=== PATIENT | female | born 1970 | race African-American/Black ===

== ENCOUNTER 2016-05-24 22:32 | Emergency (ER) ==
--- NOTE | 2016-05-25 01:10 | PROVIDER DOCUMENTATION ---
HPI-Musculoskeletal Pain/Inj - GENERAL Chief Complaint: Hip Pain Stated Complaint: HIP PAIN Time Seen by Provider: 05/25/16 00:39 Source: patient - HX OF PRESENT ILLNESS-MUSKULOSKELTAL Nature of Presenting Problem: 45 y/o BF c/o L hip pain x 5 days. Pt states long hx of arthritis in hips and has been told by her orthopedist that she needs a hip replacement. States that L hip has been hurting since weather got colder. States takes tylenol for pain since she can't take NSAIDS. Denies any other sxs. States can ambulate, but with pain. Review of Systems - Adult - REVIEW OF SYSTEMS - ADULT Constitutional: reports: no symptoms reported. denies: chills, fever Eyes: reports: no symptoms reported. denies: blurred vision, double vision Ears, Nose, Mouth & Throat: reports: no symptoms reported. denies: ear pain, nose pain Cardiovascular: reports: no symptoms reported. denies: chest pain, palpitations Respiratory: reports: no symptoms reported. denies: dyspnea on exertion, shortness of breath Gastrointestinal: reports: no symptoms reported. denies: nausea, vomiting Genitourinary: reports: no symptoms reported. denies: dysuria, frequency Musculoskeletal: reports: see HPI, joint pain. denies: back pain, neck pain Integumentary: reports: no symptoms reported. denies: nail changes, rash Neurological: reports: no symptoms reported. denies: numbness, paresthesia Psychiatric: reports: no symptoms reported Endocrine: reports: no symptoms reported. denies: cold intolerance, heat intolerance Hematologic/Lymphatic: reports: no symptoms reported. denies: easy bruising, prolonged bleeding Allergic/Immunologic: reports: no symptoms reported All Other Systems: Reviewed and Negative Past History - Adult - PAST MEDICAL HISTORY-ADULT Review of Records: reports: Nursing Assessment Review, Medications Reviewed Major Childhood Illnesses: reports: denies history Cardiovascular: reports: HTN Respiratory: reports: other (nodule in lung) Gastrointestinal: reports: cholelithiasis, GERD, inflammatory bowel disease. denies: Crohn's, colitis, diverticulosis, hepatitis, liver disease, pancreatitis Obstetrical/Gynecological: reports: denies history Genitourinary: reports: denies history, chronic UTI's. denies: kidney stones Musculoskeletal: reports: neck/back injury Neurological: denies: CVA, degenerative disease, Seizures/Epilepsy Psychiatric: reports: denies history Endocrine/Immune: reports: denies history Other Conditions: reports: denies history - PRIOR SURGERIES/PROCEDURES Surgical/Procedure History: reports: hysterectomy, BTL, back/neck (cervical fusion x2) - IMMUNIZATION STATUS Childhood Immunizations: See Nurse Assessment Flu Vaccine: See Nurse Assessment - FAMILY HISTORY Family History: diabetes, HTN Physical Exam-Injury Related - Physical Exam-Injury Related Initial Vital Signs Reviewed: Yes General Appearance: alert, mild distress Eyes: pink conjunctivae Head, Ears, Nose, Mouth & Throat: normocephalic/atraumatic Neck: normal inspection Respiratory: no respiratory distress Cardiovascular: normal peripheral pulses, regular rate, rhythm. negative: bradycardia, tachycardia Peripheral Pulses: dorsalis-pedis (R): 2+, dorsalis-pedis (L): 2+ Back Exam: normal inspection Extremity: normal gait, normal inspection, normal capillary refill, tenderness ( L hip). negative: abnormal NV exam, pulse deficit Integumentary: normal color, warm/dry Neurologic: negative: aphasia Psych/Mental Status: AL, normal mood/affect, normal thought content, normal thought process, oriented x 3 Progress - PLAN OF CARE/RESULTS Progress/Plan/Lab Results: Orders Category Date Time Status XRAY PELVIS W/HIP 2-3VW LT [RAD] Stat Exams 05/25/16 01:01 Completed Vital Signs Temp Pulse Resp BP Pulse Ox 05/25/16 02:20 97.2 F L 64 18 115/68 99 05/24/16 23:04 98.5 F 73 18 137/96 95 corn [[place]] Allergy (Severe, Verified 04/16/16 04:25) HIVES,rash yeast, dried Allergy (Severe, Verified 04/16/16 04:25) HIVES Carvedilol [Coreg] 2 tab PO BID 12/19/12 Omeprazole 40 mg PO BID 08/17/15 Losartan Potassium 25 mg PO DAILY 09/29/15 Discussed results and f/u with pt. Pt requests steroid injection; I explained that ortho can evaluate and give her a steroid shot in the office. - XRAY 1 XRAY: Left XRAY Study: Pelvis, Hip XRAY Interpretation: arthritic changes Departure - Departure Time of Disposition Order: 01:50 DIAGNOSIS: Hip arthritis Disposition: HOME 01 Certified Medical Emergency: Emergent Condition: Stable Additional Instructions: Ice or heat to area as needed. Continue taking tylenol for pain. Follow up with Dr. Billingsley for further management. ED Follow Up Instructions: You have been treated by a care provider in the Emergency Department. These instructions are being provided to you so you can have an understanding of how to care for yourself upon discharge. Upon discharge from the Emergency Department, you are responsible for making arrangements for follow-up care by a physician of your choice. Take all prescribed medications as directed. Return to the Emergency Department immediately for any new or worsening symptoms. You may call the Physician Referral phone number at [phone] to obtain a list of Physicians who are taking new patients. Referrals: Otis Wong [Primary Care Provider] - Isac Billingsley MD [STAFF PHYSICIAN] - Forms: Return to School/Parent Work Instructions: Arthritis, Nonspecific, [id number] Attestation - Physician/ Mid-level Attestation Patient care was provided by Mid-level provider (GINGER FARMER/PA):: Yes Mid-level provider:: Carmela Joya Mid-level documentation review:: The Mid-level provider documentation, treatment plan and medical decision making was reviewed by the physician who agrees with all treatment and medical decision making by the MLP.
[2016-05-25 02:21] VITALS: BP 115/68
--- NOTE | 2016-05-25 12:58 | Diag Imaging Result Document ---
PROCEDURE NAME: XRAY PELVIS W/HIP 2-3VW LT - 05/25/2016 AP PELVIS AND RIGHT HIP, 3 VIEWS: FINDINGS: There is degenerative change and flattening of both femoral heads, particularly the right, with osteophyte formation. The joint spaces are fairly well maintained. 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 No evidence of acute fracture or dislocation is present. IMPRESSION: Osteoarthritis. [facility]
== END 2016-05-25 02:22 | disposition home or self-care (01) ==
LOC: P.ED 22:32
DX: M13.852 Other specified arthritis, left hip (principal); M25.552 Pain in left hip; I10 Essential (primary) hypertension; K21.9 Gastro-esophageal reflux disease without esophagitis; Z87.440 Personal history of urinary (tract) infections; Z98.1 Arthrodesis status; Z87.19 Personal history of other diseases of the digestive system; Z79.899 Other long term (current) drug therapy; Z83.3 Family history of diabetes mellitus; Z82.49 Family history of ischemic heart disease and other diseases of the circulatory system
CPT/HCPCS: 99283

== ENCOUNTER 2019-03-23 01:02 | Inpatient (IN) ==
[2019-03-23] MEDS ORDERED: ASPIRIN PO ONE (01:14)
--- NOTE | 2019-03-23 01:20 | PROVIDER DOCUMENTATION ---
HPI-Chest Pain - General Stated Complaint: CHEST/BACK PAIN Time Seen by Provider: 03/23/19 01:10 Source: patient Allergies/Adverse Reactions: Patient Allergies Allergy/AdvReac Type Severity Reaction Status Date / Time corn [[place]] Allergy Severe HIVES,rash Verified 03/23/19 01:41 yeast, dried Allergy Severe HIVES Verified 03/23/19 01:41 Home Medications: Home Medication List Medication Instructions Recorded Confirmed Last Taken Type NK [No Home Medications] 03/23/19 03/23/19 Unknown History - History of Present Illness-CP Nature of Presenting Problem: 48 YOF WITH PMH OF HTN PRESENTS WITH C/O SHARP CHEST PAIN RADIATING TO L ARM THAT BEGAN "A FEW HOURS AOG", LOW BACK PAIN THAT HAS BEEN PRESENT X 1 WK WITH NO KNOWN INJURY. SHE DENIES ASSOCIATES SYMPTOMS WITH THE CHEST PAIN INCLUDING SOB, N/V/D, DIAPHORESIS. SHE DENIES LOSS OF B&B CONTROL, NUMBNESS TINGLING OR WEAKNESS OF THE LOWER EXTREMITIES. SHE DOES HAVE A FAMILY HX OF HEART DISEASE WITH A BROTHER DYING OF AN [place] AT AGE 49. Location: reports: substernal Chest Pain Radiation: reports: arms (L) Quality of Pain: reports: sharp Severity in ED: moderate Onset/Duration: 1-3 hours ago Timing: still present Context/Activities at Onset: reports: none Modifying Factors: improves with: nothing Associated Symptoms: reports: denies symptoms Nitro Today/Relief: no nitro taken today Aspirin Treatment Today: no aspirin today Prior Chest Pain/Cardiac Workup: reports: no prior cardiac workup. denies: cardiac cath Similar Symptoms Previously?: No Recently Seen Here or By Another Healthcare Provider: No Review of Systems - Adult - REVIEW OF SYSTEMS - ADULT Constitutional: reports: no symptoms reported. denies: see HPI, chills, fever, fatique, night sweats, weight gain, weight loss, other Eyes: reports: no symptoms reported. denies: see HPI, discharge, dry eyes, decreased vision, blurred vision, double vision, eye pain, redness, other Ears, Nose, Mouth & Throat: reports: no symptoms reported. denies: see HPI, ear discharge, ear pain, hearing loss, tinnitus, epistaxis, sinus problem, nose pain, loose teeth, mouth/dental pain, mouth swelling, hoarseness, throat pain, throat swelling, other Cardiovascular: reports: see HPI, chest pain. denies: no symptoms reported, edema, heart murmur, irregular heart rate, orthopnea, palpitations, poor circulation, PND, syncope, other Respiratory: reports: no symptoms reported. denies: see HPI, chronic cough, cough, dyspnea on exertion, excessive sputum production, hemoptysis, pleurisy, shortness of breath, wheezing, other Gastrointestinal: reports: no symptoms reported. denies: see HPI, abdominal pain, hematemesis, constipation, diarrhea, difficulty swallowing, frequent heartburn, nausea, poor appetite, rectal bleeding, vomiting, other Genitourinary: reports: no symptoms reported. denies: see HPI, dysuria, discharge, frequency, flank pain, frequent UTI's, hematuria, hesitency, incontinence, urinary retention, urgency, other Musculoskeletal: reports: see HPI, back pain. denies: no symptoms reported, bone pain, frequent leg cramps, joint pain, joint swelling, muscle aches, muscle weakness, neck pain, other Integumentary: reports: no symptoms reported. denies: see HPI, hives, hair loss, itching, mole changes, nail changes, rash, skin sores/ulcer, skin thickening, other Neurological: reports: no symptoms reported. denies: see HPI, ataxia, dizziness/vertigo, headache/migraines, loss of balance, numbness, paresthesia, seizure, slurred speech, syncope, tremors, other Psychiatric: reports: no symptoms reported. denies: see HPI, anxiety, anti- depressant use, alcohol/drug dependence, depression, emotional problems, insomnia, panic attacks, suicidal thoughts, other Endocrine: reports: no symptoms reported. denies: see HPI, change in skin pigment, excessive sweating, goiter, cold intolerance, heat intolerance, inc reased hunger, increased thirst, polyuria, other Hematologic/Lymphatic: reports: no symptoms reported. denies: see HPI, blood clots, easy bruising, low blood count, lymphedema, prolonged bleeding, swollen lymph nodes, transfusions, other Allergic/Immunologic: reports: no symptoms reported. denies: see HPI, allergic reactions, allergic rhinitis, asthma, eczema, food allergy, frequent infections, hay fever, hives, positive PPD, urticaria, other Past History - Adult - PAST MEDICAL HISTORY-ADULT Review of Records: reports: Nursing Assessment Review, Social history reviewed & non-contributory. Major Childhood Illnesses: reports: denies history Cardiovascular: reports: HTN Respiratory: reports: other (nodule in lung) Gastrointestinal: reports: cholelithiasis, GERD, inflammatory bowel disease. denies: Crohn's, colitis, diverticulosis, hepatitis, liver disease, pancreatitis Obstetrical/Gynecological: reports: denies history Genitourinary: reports: denies history, chronic UTI's. denies: kidney stones Musculoskeletal: reports: neck/back injury Neurological: denies: CVA, degenerative disease, Seizures/Epilepsy Psychiatric: reports: denies history Endocrine/Immune: reports: denies history Other Conditions: reports: denies history - PRIOR SURGERIES/PROCEDURES Surgical/Procedure History: reports: hysterectomy, BTL, back/neck - IMMUNIZATION STATUS Childhood Immunizations: See Nurse Assessment Flu Vaccine: See Nurse Assessment - FAMILY HISTORY Family History: diabetes, HTN - SOCIAL HISTORY Smoking: denies Substance Use: denies Alcohol Use Frequency: never Physical Exam-General - PHYSICAL EXAM-ADULT Initial Vital Signs Reviewed: Yes - CONSTITUTIONAL General Appearance: appears well, alert, no apparent distress - EYES Eyes: PERRL/EOMI, pink conjunctivae - HEAD, EARS, NOSE, MOUTH & THROAT HENMT: normocephalic/atraumatic, moist mucous membranes, normal ENT inspection - NECK Neck: non-tender, full range of motion, supple - RESPIRATORY Respiratory: chest non-tender, lungs clear, normal breath sounds, no pleuratic chest pain, no respiratory distress, no accessory muscle use - CARDIOVASCULAR Cardiovascular: normal peripheral pulses, regular rate, rhythm, no edema, no gallop, no JVD, no murmur - GASTROINTESTINAL (ABDOMEN) Abdominal Exam: normal bowel sounds, non tender, soft, no organomegaly, no pulsatile mass - LYMPHATIC Lymphatic: no adenopathy - MUSCULOSKELETAL Back Exam: normal inspection, no CVA tenderness, no vertebral tenderness Extremity: normal range of motion, non-tender, normal gait Peripheral Pulses: radial (R): 2+, radial (L): 2+ - SKIN Integumentary: normal color, normal turgor, warm/dry - NEUROLOGIC Neurologic: grossly normal - PSYCHIATRIC Psych/Mental Status: normal mood/affect, oriented x 3 - HEART Score HEART Score: History: Slightly Suspicious HEART Score: ECG: Non-Specific Repolarization Disturbance/LBBB/PM HEART Score: Age: 45-65 Years HEART Score: Risk Factors for Atherosclerotic Disease: 1 or 2 Risk Factors HEART Score: Troponin: < or = Normal Limit Total HEART Score:: 3 Progress - PLAN OF CARE/RESULTS Progress/Plan/Lab Results: Vital Signs - 8 hr 03/23/19 01:10 Temperature 98.4 F Pulse Rate 70 Respiratory Rate 13 Blood Pressure 158/98 O2 Sat by Pulse Oximetry 98 Orders Category Date Time Status Nursing- Obtain EKG ONCE Care 03/23/19 01:07 Active CHEST-2 VIEWS [RAD] Stat Exams 03/23/19 01:14 Taken CBC WITH ELECTRONIC DIFF [HEME] Stat Lab 03/23/19 01:54 Ordered CK PROFILE [SP CHEM] Stat Lab 03/23/19 01:54 Ordered COMPREHENSIVE METABOLIC PANEL [CHEM] Stat Lab 03/23/19 01:54 Ordered PROTIME WITH INR [COAG] Stat Lab 03/23/19 01:54 Ordered PTT [[place]AG] Stat Lab 03/23/19 01:54 Ordered TROPONIN T Stat Lab 03/23/19 01:54 Ordered Aspirin Med 03/23/19 01:14 Discontinued 325 mg PO NOW ONE EKG [EKG] Stat Ther 03/23/19 01:14 Ordered Result Diagrams: 03/23/19 01:53 03/23/19 01:53 - REASSESSMENT Reassessment #1 Status: improving (pt signed out to me by GENARO Williamson pending labs. Feeling well, chest pain resolved. ED work up unremarkable but presentation concerning for ACS. Will admit for further evalauation and treatment. Discussed case with Dr. Cárdenas hospitalist. who will see and admit pt.) - EKG 1 Time of EKG reading by physician:: 01:20 EKG Read and Signed by:: Petra Collazo EKG Interpretation (*Must complete 3 of following elements*): Abnormal Rate: 73 Rhythm: NSR [place]: normal QRS: normal [place] Interval: normal ST Wave: non-specific ST changes Prior EKG Comparison: changes noted - XRAY 1 XRAY Study: Chest Impression: Normal - CHANGE OF SHIFT REPORT (ED Provider) 1 Report Given and Care Transferred to:: DR. COLLAZO Time of Transfer: 02:00 Items Pending: Labs Departure - Departure Date of Disposition Decision: 03/23/19 Time of Disposition Decision: 03:10 DIAGNOSIS: Chest pain Qualifiers: Chest pain type: unspecified Qualified Code(s): R07.9 - Chest pain, unspecified Disposition: ADMITTED INPATIENT 09 Certified Medical Emergency: Emergent Condition: Fair - Critical Care Note This patient required my direct & personal management of CC.: No Attestation - Physician/ ALEX Attestation Patient care was provided by Advanced Practice Provider:: Yes Advanced Practice Provider documentation review:: The Mid-level provider documentation, treatment plan and medical decision making was reviewed by the physician who agrees with all treatment and medical decision making by the MLP. The physician spent face to face time with patient:: Yes Advanced Practice Provider documentation review:: Supervising physician onsite and consulted in the evaluation and care of this patient. The physician did have a face to face encounter with the patient.
[2019-03-23 02:04] LABS: BASO# 0.02 X1000 (0.0-0.2); BASO% 0.2 % (0.0-0.8); EOS# 0.09 X1000 (0.0-0.7); EOS% 1.1 % (0.0-10.0); HEMATOCRIT 39.1 % (37.0-47.0); HEMOGLOBIN 13.1 g/dL (12.0-16.0); IMM GRAN# 0.02 X1000 (0.0-0.04); IMM GRAN% 0.2 % (0.0-0.5); LYMPH# 2.68 X1000 (1.2-3.4); LYMPH% 32.7 % (20.5-51.1); MCH 26.4 PG (27-31); MCHC 33.5 g/dL (33-37); MCV 78.7 FL (81-99); MONO# 0.53 X1000 (0.11-0.59); MONO% 6.5 % (1.7-9.3); MPV 9.8 FL (7.4-10.4); NEUT# 4.85 X1000 (1.4-6.5); NEUT% 59.3 % (42.2-75.2); PLT 283 X1000 (130-400); RBC 4.97 XMIL (4.2-5.4); RDW 13.1 % (11.5-14.5); WBC 8.19 X1000 (4.8-10.8)
[2019-03-23 02:18] LABS: INR 1.01; PROTIME 13.4 Seconds (11.0-16.0)
[2019-03-23 02:19] LABS: PTT 41.1 Seconds (22.3-41.8)
[2019-03-23 02:24] LABS: AGAP 13; ALB/GLOB RATIO 1.8; ALBUMIN 4.7 g/dL (3.5-5.0); ALKALINE PHOSPHATASE 142 U/L (32-104); BUN 11 mg/dL (8-22); CALCIUM 10.2 mg/dL (8.8-10.2); CHLORIDE 102 mmol/L (98-107); CK PROFILE 165 U/L (24-173); COSMO 281; CREATININE 0.9 mg/dL (0.5-0.9); ESTIMATED GFR > 60; GLUCOSE 102 mg/dL (70-104); GOT 14 U/L (10-30); GPT 6 U/L (10-36); SODIUM 141 mmol/L (136-145); TCO2 26 mmol/L (25-35); TOTAL BILIRUBIN 0.34 mg/dL (0.20-1.00); TOTAL PROTEIN 7.3 g/dL (6.3-8.3)
[2019-03-23] MEDS ORDERED: ZOFRAN IV ONE (03:17)
--- NOTE | 2019-03-23 06:03 | HISTORY AND PHYSICAL ---
CHIEF COMPLAINT: Chest pain. HISTORY OF PRESENT ILLNESS: This is a 48-year-old female who has a history of hypertension. She does not take any home medications. Also has a history of having to have esophageal dilation. States that she also has chronic low back pain. She has been having this for greater than a week. States that her chest started hurting today, radiated into her left arm. She did not have any nausea, vomiting, shortness of breath or diaphoresis with this. EKG was normal. The patient does have a history of early from cardiac disease in her family. Her brother at age 49. Her HEART score is still relatively low. She will be observed and cardiac enzymes trended. PAST MEDICAL HISTORY: See HPI. PREVIOUS SURGICAL HISTORY: 1. Esophageal dilation multiple times. 2. Two cervical fusions. 3. Cholecystectomy. 4. Hysterectomy. SOCIAL HISTORY: She is disabled secondary to neck pain. No tobacco, alcohol or illicit drugs. FAMILY HISTORY: Father and mother have coronary artery disease. They are still living in their 70s. Brother from NH at age 49. ALLERGIES: [place] and yeast. HOME MEDICATIONS: None. REVIEW OF SYSTEMS: Fourteen-point review of systems conducted with the patient. Pertinent positives listed above in the HPI. All other systems reviewed and found to be negative. PHYSICAL EXAMINATION: VITAL SIGNS: Temperature 98.4, pulse 61, respirations 16, blood pressure 156/97, oxygen saturation 96% on room air. GENERAL: A 48-year-old female lying in the ER stretcher. She is in no acute distress. Alert and oriented times 3. Answers all questions appropriately. HEENT: Head is atraumatic, normocephalic. Pupils equal, round, reactive to light. Extraocular eye movement is intact. Sclerae are anicteric. Conjunctiva is pink. Oral mucosa is moist. NECK: Supple. No JVD. No thyromegaly. Trachea is midline. No cervical lymphadenopathy. CARDIAC: S1, S2 appreciated. No murmurs, gallops, rubs. LUNGS: Clear to auscultation bilaterally. No rhonchi, wheezes, rales. Symmetric rise and fall with respirations. ABDOMEN: Soft, nondistended, nontender. Bowel sounds present all 4 quadrants, normoactive. No pulsatile mass. No organomegaly. EXTREMITIES: No clubbing, cyanosis or edema. Two-plus pedal pulses bilaterally. GENITOURINARY: No bladder distention. Patient voids. Otherwise deferred. NEUROLOGICAL: Alert and oriented times 3. Cranial nerves 2 through 12 grossly intact. LABORATORY DATA: CBC and CMP within normal limits. CK and troponin within normal limits. Chest x-ray: No acute disease. UA is pending. EKG: Normal sinus rhythm, rate of 73, nonspecific ST changes. ASSESSMENT AND PLAN: 1. Chest pain, rule out acute myocardial infarction. Patient will be placed in observation status. Her HEART score is roughly 3. She does have early family . Really no other risk factors other than hypertension which as far as I can tell is untreated. We will trend cardiac enzymes. Echocardiogram tomorrow morning. 2. Hypertension. We will place on hydralazine IV p.r.n. now. Her chest pain has resolved. We will just give sublingual nitroglycerin. We will not put transdermal as the patient was also complaining of a headache. 3. Frequent esophageal dilation. If the patient continues to have problems and it is not thought to be cardiac, she may need to follow up with Dr. Cartagena. The patient was a Dr. Shah patient who is no longer here. At any rate, she may need esophageal dilation. Further recommendations per patient clinical course. Dictated by JAMEE Diaz for Tutu Cárdenas MD I have performed a face to face diagnostic evaluation. Labs/Xrays- reviewed. Exam- Chest- clear CV- regular. A/P- Chest pain- admit, cardiac work up, ASA, Echo. Dr. Cárdensa cc: JAMEE Diaz MD [facility]
--- NOTE | 2019-03-23 06:29 | Diag Imaging Result Doc PS360 ---
EXAM: CHEST-2 VIEWS HISTORY: CP TECHNIQUE: Two views COMPARISON: 11/18/2017 FINDINGS: The lungs are well expanded. The heart is not enlarged. The vessels are not distended. There are no infiltrates. No pleural effusions. There has been surgery to the lower neck. IMPRESSION: No acute abnormality. Electronically signed by Jacques White 03/23/2019 6:27 AM
[2019-03-23] MEDS ORDERED: ZOFRAN IV PRN (06:47)
[2019-03-23] MEDS ORDERED: TYLENOL PO PRN (06:47)
[2019-03-23] MEDS ORDERED: NITROGLYCERIN SL PRN (06:47)
[2019-03-23] MEDS ORDERED: APRESOLINE IV PRN (06:47)
[2019-03-23] MEDS ORDERED: PRILOSEC PO SCH (07:00)
--- NOTE | 2019-03-23 07:08 | EKG Report ---
Test Performed on : 03/23/2019 01:15:55 AM Test Reason : CP Blood Pressure : / mmHG Vent. Rate : 073 BPM Atrial Rate : 073 BPM P-R Int : 160 ms QRS Dur : 068 ms QT Int : 358 ms P-R-T Axes : 000 -24 -35 degrees QTc Int : 394 ms Normal sinus rhythm. Septal infarct , age undetermined Abnormal ECG When compared with ECG of 18-NOV-2017 17:04, Septal infarct is now present Unconfirmed Result
[2019-03-23 07:52] LABS: URINE SOURCE CLEAN CATCH
[2019-03-23 07:56] LABS: BILIRUBIN URINE NEGATIVE (NEGATIVE); BLOOD URINE NEGATIVE (NEGATIVE); COLOR STRAW; GLUCOSE URINE NEGATIVE (NEGATIVE); KETONE URINE NEGATIVE (NEGATIVE); LEUKOCYTES URINE NEGATIVE (NEGATIVE); NITRITE URINE NEGATIVE (NEGATIVE); PROTEIN URINE NEGATIVE (NEGATIVE); SP GRAVITY URINE 1.008; TURBIDITY URINE CLEAR (CLEAR); UROBILINOGEN URINE NORMAL (NORMAL)
[2019-03-23 07:57] LABS: UR EPITHELIAL CELLS <10 /HPF (<10); URINE BACTERIA NEGATIVE /HPF; URINE RBC <10 /HPF (<10); URINE WBC <10 /HPF (<10)
[2019-03-23] MEDS ORDERED: G.I. COCKTAIL PO ONE (09:56)
[2019-03-23] MEDS: ASPIRIN PO SCH (11:19)
[2019-03-23] MEDS: LOVENOX SUBQ SCH (11:19)
--- NOTE | 2019-03-23 17:19 | CONSULTATION ---
DATE OF CONSULTATION: 03/23/2019 IMPRESSION: 1. Episodic chest discomfort, atypical for myocardial ischemia. 2. Gastroesophageal reflux with history of esophageal stricture and previous esophageal dilatations on several occasions. 3. Chronic pain disorder following 2 previous neck procedures. RECOMMENDATIONS: 1. Serial cardiac enzymes. 2. Followup echocardiography. 3. Ultimately patient would benefit from screening stress test. She does not sound like she would be able to perform on a treadmill and thus Lexiscan sestamibi study may be most appropriate. HISTORY: This 48-year-old -Irish female with past history of hypertension at times, 2 previous cervical spine surgical procedures and several esophageal dilatation procedures was admitted through the emergency room for evaluation of chest pain. She relates that yesterday she started experiencing sharp discomfort in the left anterior chest. There was some associated discomfort in the left upper extremity. Episodes were fleeting and not exertion related. She can identify no precipitating or relieving factors. She has continued to have such chest discomfort since admission. She is a nonsmoker. She has no previous history of cardiac problems. She has been felt to have hypertension times but her blood pressure has more often been normal at home and tends to elevate some in the physician's office. PAST MEDICAL HISTORY: 1. Chronic pain disorder. 2. Esophageal dilatation on 2 occasions for esophageal stricture. 3. Gastroesophageal reflux. 4. Hypertension. 5. Past Surgical history also includes cholecystectomy, hysterectomy and 2 previous cervical spine procedures. ALLERGIES: She is allergic or intolerant to corn, yeast. MEDICATIONS PRIOR TO ADMISSION: As listed. SOCIAL HISTORY: She does not smoke or use alcohol. FAMILY HISTORY: Positive for coronary disease. Her brother of sudden cardiac at age 49. REVIEW OF SYSTEMS: Pulmonary: Noncontributory beyond history of present illness. Gastrointestinal: Noncontributory beyond history of present illness. Constitutional: Noncontributory beyond history of present illness. Remainder of review of systems negative/noncontributory beyond history present illness with 14 total systems reviewed. PHYSICAL EXAMINATION: General: This is a pleasant, overweight adult -Irish female in no distress. Vital signs: Blood pressure 132/91, heart rate 72, oxygen saturation 99% on room air. HEENT: Extraocular movements intact. Mucous membranes are moist. Neck: Supple without jugular venous distention. There are no carotid bruits. Chest: Clear to auscultation. Cardiac: Reveals a regular rate and rhythm without appreciable murmur or gallop. Abdomen: Soft. Bowel sounds are normal. Extremities: Without edema. Neurologic: Reveal her to be alert, speech is fluent. Moves all 4 extremities equally well. Skin: Warm, dry. Psychiatric: Reveals mood to be appropriate. 12 lead EKG demonstrates sinus rhythm, cannot rule out septal infarct of undetermined age and nonspecific T-wave abnormality. LABORATORY DATA: Includes a white blood cell count 8.19, hematocrit 39.1, hemoglobin 13.1, platelet count 283,000. Sodium 141, potassium 4.0, chloride 102, carbon dioxide 26, BUN 11, creatinine 0.9, glucose 102. Initial troponin T less than 0.01. Followup troponin T less than 0.01. Fasting triglycerides 71, total cholesterol 146, LDL cholesterol 98, HDL cholesterol 44, VLDL cholesterol 14. cc: Geoff Mixon MD
--- NOTE | 2019-03-23 17:39 | EKG Report ---
Test Performed on : 03/23/2019 09:01:09 AM Test Reason : cp Blood Pressure : / mmHG Vent. Rate : 063 BPM Atrial Rate : 063 BPM P-R Int : 158 ms QRS Dur : 076 ms QT Int : 398 ms P-R-T Axes : 023 014 021 degrees QTc Int : 407 ms Normal sinus rhythm. Minimal voltage criteria for LVH, may be normal variant Borderline ECG When compared with ECG of 23-MAR-2019 01:15, (Unconfirmed) Nonspecific T wave abnormality has replaced inverted T waves in Inferior leads Unconfirmed Result
[2019-03-23] MEDS: PRILOSEC PO SCH (21:14)
[2019-03-23] MEDS: NORCO-7.5 PO PRN (21:15)
--- NOTE | 2019-03-24 00:23 | ECHO REPORT ---
ORDER DATE: 03/23/2019 MEASUREMENTS: Septal thickness 1.0, left ventricular internal diameter in diastole 4.0, posterior wall thickness 0.7, left ventricular internal diameter in systole 2.7, aortic root 2.8, left atrium 3.0. SUMMARY: 1. Technically difficult study due to limited acoustic window quality. 2. Aortic valve appears without evidence of structural abnormality and opens adequately on 2- dimensional images. Peak gradient across aortic valve is less than 10 mmHg. Mitral and tricuspid valves are without evidence of structural abnormality while pulmonic valve is not well demonstrated. There is trace tricuspid regurgitation. Aortic root is normal in size. 3. Normal left ventricular dimensions demonstrated. Estimated left ejection fraction appears to be at least 65%. No regional wall motion abnormalities are evident. Left atrium, right atrium, right ventricle are normal size with normal right ventricular systolic function. 4. No pericardial effusion. 5. Appearance of inferior vena cava suggests normal central venous pressure. cc: MD Jonas Brown CRNP
[2019-03-24] MEDS: LOVENOX SUBQ SCH (06:22)
[2019-03-24] MEDS: PRILOSEC PO SCH ×3 (06:22→20:29)
[2019-03-24] MEDS: NORCO-7.5 PO PRN (07:08)
[2019-03-24] MEDS ORDERED: G.I. COCKTAIL PO ONE (08:54)
--- NOTE | 2019-03-24 09:30 | PROGRESS NOTE ---
DATE: 03/24/2019 SUBJECTIVE: The patient reports she is still having some epigastric discomfort. She is not sure if she has substernal chest discomfort as well. OBJECTIVE: Vital Signs: Temperature 98.6 degrees, heart rate 65, respiratory rate 19, blood pressure 125/56, O2 saturation 99% on room air. General: This is a 48-year-old female, lying in bed in no acute distress. Cardiovascular: S1, S2 heard. No murmurs, gallops, or rubs. Regular rate and rhythm. Respiratory: Clear bilaterally to auscultation. No work of breathing or using accessory muscles. Abdomen: Soft. Nontender to palpation. Bowel sounds present. No organomegaly. Extremities: No clubbing, cyanosis, or edema. Peripheral pulses present in both legs. Neurological: The patient is alert and oriented x3. Moves all 4 extremities. LABORATORY DATA: There are no labs from today. ASSESSMENT AND PLAN: 1. Chest pain. We have checked troponins x3, and those are negative. The echocardiogram was grossly unremarkable. Evaluated by Cardiology. They are going to do Lexiscan sestamibi tomorrow. 2. Epigastric discomfort. The patient has a history of esophageal dilation multiple times. She continues to complain of epigastric pain as well, so at this point, what we are going to do is to provide one more dose of gastrointestinal cocktail. Will continue with omeprazole 20 mg by mouth twice daily, and if Lexiscan is negative and the patient's symptoms persist, will call Gastroenterology. 3. Hypertension. Blood pressure is under control. Will continue with the same management. 4. Frequent esophageal dilatation. As we mentioned above, if the patient continues to have epigastric pain/discomfort, will call Gastroenterology, Dr. Cartagena, tomorrow. cc: Issa Rubi MD
[2019-03-24] MEDS: MIRALAX PO SCH ×3 (10:28→20:29)
[2019-03-24] MEDS: ASPIRIN PO SCH (10:29)
[2019-03-25] MEDS: PRILOSEC PO SCH (04:11)
--- NOTE | 2019-03-25 06:52 | EKG Report ---
Test Performed on : 03/25/2019 06:37:01 AM Test Reason : cp Blood Pressure : / mmHG Vent. Rate : 067 BPM Atrial Rate : 067 BPM P-R Int : 160 ms QRS Dur : 076 ms QT Int : 372 ms P-R-T Axes : 053 042 008 degrees QTc Int : 393 ms Normal sinus rhythm. Nonspecific T wave abnormality Abnormal ECG When compared with ECG of 23-MAR-2019 09:01, (Unconfirmed) No significant change was found Unconfirmed Result
[2019-03-25 08:16] LABS: AGAP 12; ALBUMIN 3.8 g/dL (3.5-5.0); BUN 12 mg/dL (8-22); CALCIUM 9.5 mg/dL (8.8-10.2); CHLORIDE 103 mmol/L (98-107); COSMO 279; CREATININE 0.9 mg/dL (0.5-0.9); ESTIMATED GFR > 60; GLUCOSE 101 mg/dL (70-104); POTASSIUM 3.9 mmol/L (3.5-5.1); SODIUM 140 mmol/L (136-145); TCO2 25 mmol/L (25-35)
[2019-03-25] MEDS ORDERED: LEXISCAN ONE (11:33)
[2019-03-25] MEDS: LOVENOX SUBQ SCH (13:00)
[2019-03-25] MEDS: ASPIRIN PO SCH (13:01)
[2019-03-25] MEDS: MIRALAX PO SCH (13:03)
[2019-03-25] MEDS ORDERED: SODIUM CHLORIDE 0.9% INJ SCH (15:00)
[2019-03-25] MEDS ORDERED: PROTONIX IV SCH (15:00)
[2019-03-25] MEDS ORDERED: CARAFATE LIQUID PO SCH (15:00)
--- NOTE | 2019-03-25 15:00 | PROGRESS NOTE ---
DATE: 03/25/2019 SUBJECTIVE: The patient reports still feeling pain, nausea, and some vomiting. The pain is located in the epigastric area. Denies any fever, chills, sweating. OBJECTIVE: Vital Signs: Temperature 98.6 degrees, heart rate 71, respiratory rate 19, blood pressure 126/65, O2 saturation 97% on room air. General: This is a 48-year-old female, lying in bed in no acute distress. Cardiovascular: S1, S2 heard. No murmurs, gallops, or rubs. Regular rate and rhythm. Respiratory: Clear bilaterally to auscultation. No work of breathing or using accessory muscles. Abdomen: Soft, nontender to palpation. Bowel sounds present. No organomegaly. Mild epigastric tenderness. Extremities: No clubbing, cyanosis, or edema. Peripheral pulses present in both legs. Neurological: The patient is alert and oriented x3. Moves all 4 extremities. LABORATORY DATA: Reviewed. ASSESSMENT AND PLAN: 1. Chest pain. We have checked troponins 3 times. Those are negative. Echocardiogram was unremarkable, and also Lexiscan returned normal, so we have ruled out any acute coronary syndrome or coronary artery disease. Cardiology has evaluated this patient. They signed off. 2. Epigastric discomfort. Because this patient has history of multiple esophageal dilatations and continues to complain of epigastric pain, we decided to place this patient on Protonix intravenously. Also, will consult Dr. Cartagena, who is his primary sausage mixer, and will go from there. 3. Hypertension. Blood pressure is under control. Will continue with the same management. 4. Disposition. Awaiting Gastroenterology evaluation. Once this patient is cleared, the patient will be released. cc: Issa Rubi MD
[2019-03-25 15:44] VITALS: BP 147/88
--- NOTE | 2019-03-25 18:37 | DISCHARGE SUMMARY ---
ADMISSION DATE: 03/25/2019 DISCHARGE DATE: 03/25/2019 DISCHARGE DIAGNOSES: 1. Chest pain, resolved. 2. Epigastric pain, improved. 3. Hypertension. 4. History of esophageal dilatation. CONSULTATIONS: Dr. Geoff Mixon from cardiology. PROCEDURES: 1. Chest x-ray done on admission showed no acute abnormality. 2. Echocardiogram Doppler showed ejection fraction 55% with no regional wall motion abnormalities. No pericardial effusion. 3. Lexiscan has been verbally informed like normal. HOSPITAL COURSE: This is a 48-year-old female with a past medical history of esophageal dilation, cholecystectomy, and hysterectomy who presented to the emergency department complaining of chest pain. Because of her risk factors, it was decided to keep this patient in the hospital for chest pain workup for possible coronary artery disease. Exams, including a Lexiscan stress test, echocardiogram, returned normal. The patient was complaining still of some epigastric discomfort. I talked to her that she can be seen by her primary GI doctor. Her doctor was Dr. Shah, but she has been recommended to see Dr. Cartagena as an outpatient. She said that her epigastric pain is getting much better, so she is going to be discharged in stable condition. DISCHARGE PHYSICAL EXAMINATION: Vital Signs: Temperature 98.1 degrees, heart rate 73, respiratory rate 19, blood pressure 147/88, and O2 saturation 97% on room air. General: On examination, this is a 48-year-old female lying in bed, in no acute distress. Cardiovascular: S1, S2 heard. No murmurs, gallops, or rubs. Regular rate and rhythm. Respiratory: Exam clear bilaterally to auscultation. No work of breathing or using accessory muscles. Abdomen: Soft, nontender to palpation. Bowel sounds present. No organomegaly. Extremities: No clubbing, cyanosis, or edema. Peripheral pulses present in both legs. Neurological: The patient is alert and oriented x3. Moves 4 extremities. DISCHARGE DISPOSITION: Home to self-care. DISCHARGE MEDICATIONS: We are not going to make any changes to her current medications. FOLLOWUP: With Dr. Cartagena in the office in 1 to 2 weeks. cc: Issa Rubi MD
--- NOTE | 2019-03-25 19:33 | Diag Imaging Result Document ---
PROCEDURE NAME: MYOCARDIAL PERF SCAN, STR/REST - 03/25/2019 STUDY: Rest/stress Lexiscan myocardial perfusion study. REQUESTING PHYSICIAN: Hospitalist service. INDICATION: Chest pain. DESCRIPTION: The patient came into the nuclear lab and received a rest injection of technetium 99 sestamibi 14.5 mCi. Multiple tomographic views of the cardiac structures were obtained at rest. Subsequently, the patient underwent infusion of Lexiscan, 0.4 mg. At peak infusion, she was injected with technetium 99 sestamibi 42.8 mCi. Multiple tomographic views of the cardiac structures were obtained following the completion of the protocol. SUMMARY OF THE ELECTROCARDIOGRAPHIC PORTION OF THE STUDY: Resting ECG showed sinus rhythm with a rate of 67 beats per minute. Resting blood pressure is 110/65. Resting ECG basically looks normal. During the infusion, the heart rate increased to a maximum of 103 beats per minute. The blood pressure went up to 144/60. The patient reported significant chest pain at peak exercise with quick resolution. That resolution was spontaneous. Peak infusion ECG shows sinus tachycardia with a nonspecific T wave. Following the completion of the test, the heart rate and blood pressure returned back to their baseline. In summary, the electrocardiographic response to infusion of Lexiscan is deemed to be nonspecific. SUMMARY OF THE MYOCARDIAL PERFUSION PORTION OF THE STUDY: Poststress tomographic views of the left ventricle showed normal homogeneous distribution of radiotracer throughout the entire left ventricular myocardium. There is no evidence of any postexercise defect. The rest images show normal perfusion. The polar plots revealed the same. There is no evidence of any inducible ischemia nor myocardial scar. The gated SPECT shows normal left ventricular systolic function with ejection fraction of 72% with normal ventricular volumes and no wall motion abnormality. The lung/heart ratio is normal. TID is normal. SUMMARY: This study shows: 1. Unremarkable electrocardiogram response to infusion of Lexiscan. The patient reported chest pain that resolved quickly. This appears to be nonspecific. 2. Normal poststress myocardial perfusion scan. There is no scintigraphic evidence of pharmacologically induced myocardial ischemia. 3. Normal left ventricular systolic function with ejection fraction estimated at 72% with normal ventricular volumes and no wall motion abnormality. This study would suggest a low risk for ischemic events. Clinical correlation is recommended. cc: MD Issa Crowley MD
== END 2019-03-25 18:13 | disposition home or self-care (01) | DRG 313 ==
LOC: ED 01:02 → 3N 01:02 → SUATTDRO 05:58
PROVIDERS: ATTEND Internal Medicine